=== PATIENT | female | born 1980 | race Caucasian/White ===

== ENCOUNTER 2021-05-16 08:27 | Emergency (ER) | payer OTHER ==
[~2021-05-16] VITALS: Ht 154.9 cm; Wt 120.2 kg
[2021-05-16] MEDS ORDERED: VISTARIL25 MG PO (11:59)
[2021-05-16] MEDS ORDERED: COZAAR50 MG PO (11:59)
== END 2021-05-16 12:52 | disposition home or self-care (01) ==
LOC: ER 08:27
DX: I10 Essential (primary) hypertension (principal); E66.9 Obesity, unspecified; R07.9 Chest pain, unspecified